=== PATIENT | female | born 1965 | race African-American/Black ===

== ENCOUNTER 2020-08-04 15:34 | Emergency (ER) | payer BC, OTHER ==
--- OUTSIDE RECORDS SUMMARY | 2020-08-04 15:36 | XMS REPORT | Summary of Care ---
:1965 Author Organization [facility] Address [address] [place] [address] Care Team Providers Name Role Phone Nikolay Peters Primary Care Provider Reason for Referral Radiology Services (Routine) Status Reason Specialty Diagnoses / Referred By Referred To Procedures Contact Contact New Request Diagnostic Diagnoses Pain Stef Falcon Radiology Procedures XR HAND <3 VW RIGHT MD Jacki [address] [facility] [place] [address] Reason for Visit Reason Comments Xray Encounter Details Date Type Department Care Team Description 07/18/2020 Telephone [facility] Orthopaedic Stef Falcon MD Xray Surgery- [place] [address] [facility] [place] [address] [address] [place] [address] Allergies No Known Allergiesdocumented as of this encounter (statuses as of 07/18/2020) Medications Medication Sig Dispensed Refills Start Date End Date Status hydroCHLOROthiazide 25 mg Take 1 tablet 30 tablet 2 01/04/2017 Active tablet by mouth daily. CRANBERRY FRUIT Take by 0 Acti ve CONCENTRATE (AZO CRANBERRY mouth. ORAL) APPLE CIDER VINEGAR ORAL Take by 0 Active mouth. plecanatide (TRULANCE) 3 Take by mouth 0 Active mg Tab daily. amLODIPine 10 mg tablet Take 10 mg by 0 Active mouth daily. ciprofloxacin HCl 500 mg Take 1 tablet 20 tablet 0 11/04/2018 Active tabletIndications: Right by mouth 2 upper quadrant abdominal (two) times pain, Constipation, daily. unspecified constipation type, Gastroenteritis dicyclomine (BENTYL) 20 mg Take 1 tablet 20 tablet 0 9 Active tabletIndications: Right by mouth 4 upper quadrant abdominal (four) times pain, Constipation, daily. unspecified constipation type, Gastroenteritis proMETHazine 25 mg Take 1 tablet 12 tablet 0 11/04/2018 Active tabletIndications: Right by mouth every upper quadrant abdominal 6 (six) hours pain, Constipation, as needed for unspecified constipation Nausea and type, Gastroenteritis Vomiting (N/V). amitriptyline 10 mg tablet Take 10 mg by 0 Active mouth at bedtime. cyclobenzaprine 5 mg Take 1 tablet 20 tablet 0 11/05/2019 Active tabletIndications: Pain of by mouth 3 right hip joint (three) times daily. gabapentin 300 mg capsule Take 300 mg by 0 Active mouth 2 (two) times daily. doxepin 25 mg capsule Take 25 mg by 0 Active mouth at bedtime. furosemide 20 mg tablet Take 20 mg by 0 Active mouth daily. Omeprazole 20 mg tablet Take by 0 Active mouth. 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, face, 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 MALIG NEOPLASM BREAST UP-OUTER 12/10/2009 Peripheral neuropathy, toxic 09/24/2009 documented as of this encounter (statuses as of 07/18/2020) Resolved Problems Problem Noted Date Resolved Date Edema 08/04/2011 12/19/2013 GENETIC DISEASE CARRIER TESTING FEMALE, DISEASE CARRIER 11/2812/19/2013 Neutropenia 09/27/2009 03/17/2010 Overview: ICD10 Diagnosis Term 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 documented as of this encounter (statuses as of 07/18/2020) Immunizations Name Administration Dates Next Due Influenza Virus Vaccine 07/19/2009 documented as of this encounter Social History Tobacco Use Types Packs/Day Years Used Date Never Smoker Smokeless Tobacco: Never Used Alcohol Use Drinks/Week oz/Week Comments No Sex Assigned at Date Recorded Not on file documented as of this encounter Last Filed Vital Signs Not on filedocumented in this encounter Miscellaneous Notes Telephone Encounter - Mil Childers - 07/18/2020 10:48 AM CSTCalled patient but no answer,I, Mil Childers (X-ray Tech), will not be in the office day of her apt. Will need to have X-rays done prior to visit at the hospital. I have placed orders in Epic. Mil Childers 07/18/2020 10:49 AM documented in this encounter Plan of Treatment Date Type Specialty Care Team Description 07/19/2020 Office Visit Surgery Oncology Lucille Park MD [address] [place] [address] 07/22/2020 Office Visit Orthopedic Surgery Kyle Falcon MD [address] [phone] Name Type Priority Associated Diagnoses Order S chedule XR HAND <3 VW RIGHT IMAGING Routine Pain Expected : 07/18/2020, Expires: 2020 Health Maintenance Due Date Last Done Comments PNEUMOCOCCAL 0-64 YEARS COMBINED SERIES 12/06/1971 (1 of 3 - PCV13) DTaP,Tdap,and Td Vaccines (1 - Tdap) 1984 Breast Cancer Screening (MAMMOGRAM) 06/09/2012 06/09/2011, 06/05/2009 COLON CANCER SCREENING ANNUAL FIT/FOBT 12/06/2015 COLON CANCER SCREENING FIT DNA EVERY 3 12/06/2015 YEARS COLON CANCER SCREENING SIGMOIDOSCOPY 12/06/2015 EVERY 5 YEARS Zoster Recombinant Vaccine (SHINGRIX) (1 12/06/2015 of 2) INFLUENZA VACCINE (#1) 2020 07/19/2009 Depression Screening 01/22/2021 01/23/2020 COLONOSCOPY 07/24/2023 07/24/2013 Colorectal Cancer Screening 07/24/2023 PAP SMEAR Discontinued 10/17/2010, 05/28/2009 documented as of this encounter Goals Goal Patient Goal Associated Recent Progress Patient-Stated? Au thor Type Problems Pt states General Yes Saritha Lambert, PT documented as of this encounter Results Not on filedocumented in this encounter Visit Diagnoses Diagnosis Pain - Primary Generalized pain documented in this encounter Insurance Payer Benefit Plan Subscriber ID Effective Phone Address Typ e / Group Dates [facility] [id number] 2018-[place] PPO/POS - [employer] EMPLOYEE PLAN nt EMPLOYEE MEDICARE MEDICARE PART [id number] 2011-Justino [phone] 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
--- OUTSIDE RECORDS SUMMARY | 2020-08-04 15:36 | XMS REPORT | Continuity of Care Document ---
:[address] [facility] t Address [address] [place] [address] Care Team Providers Name Role Phone Terrie MORENO L Attending Clinician Problems This patient has no known problems. Allergies, Adverse Reactions, Alerts This patient has no known allergies or adverse reactions. Medications This patient has no known medications. Procedures This patient has no known procedures. Encounters Start End Encounter Admission Attending Care Care Encounter Source Date/Time Date/Time Type Type Clinicians Facility Department ID 2020-07-22 2020-07-22 Office MARIA A Falcon [id number] 13:24:18 14:02:38 Visit [facility] [id number] Surgical [id number] Specialti [id number] [address] Results This patient has no known results.
--- OUTSIDE RECORDS SUMMARY | 2020-08-04 15:37 | XMS REPORT | Summary of Care ---
:1965 Author Organization [facility] Address [address] [place] [address] Care Team Providers Name Role Phone Nikolay Peters Primary Care Provider Reason for Visit Reason Comments New Patient Hand Pain Right (Routine) Status Reason Specialty Diagnoses / Referred By Referred To Procedures Contact Contact Authorized Orthopedic Surgery Diagnoses Pain in right hand [place], Procedures CONSULT/REFERRAL ORTHOPAEDIC SURGERY Magdalena [address] [facility] [address] [place] [address] Encounter Details Date Type Department Care Team Description 07/22/2020 Office Visit [facility] Orthopaedic Stef Falcon thumb of right Surgery- David Echeverria MD hand (Primary Dx) [address], [address] [place] [address] [place] [address] [address] [place], [place] [phone] Allergies No Known Allergiesdocumented as of this encounter (statuses as of 08/02/2020) Medications Medication Sig Dispensed Refills Start Date [...] as of this encounter (statuses as of 08/02/2020) Active Problems Problem Noted Date Soft tissue abscess 03/27/2018 Abdominal wall abscess 11/09/2017 Overview: Added automatically from request for maribel leigh [id number] Enlarged liver 03/10/2017 Spleen enlarged 03/10/2017 Diastasis, [...] as of this encounter (statuses as of 08/02/2020) Resolved Problems Problem Noted Date Resolved Date Edema 08/04/2011 12/19/2013 GENETIC DISEASE CARRIER TESTING FEMALE, DISEASE CARRIER 11/2812/19/2013 Neutropenia 09/27/2009 03/17/2010 Overview: ICD10 Diagnosis Term Mobile Therapist Utility documented as of this encounter (statuses as of 08/02/2020) Immunizations Name Administration Dates Next Due Influenza Virus Vaccine 07/19/2009 documented as of this encounter Social History Tobacco Use Types Packs/Day Years Used Date Never Smoker Smokeless Tobacco: Never Used Alcohol Use Drinks/Week oz/Week Comments No Sex Assigned at Date Recorded Not on file COVID-19 Exposure Response Date Recorded In the last month, have you been in contact with No / Unsure 08/01/2020 1:30 PM JOINT FILLER someone who was confirmed or suspected to have Coronavirus / COVID-19? documented as of this encounter Last Filed Vital Signs Vital Sign Reading Time Taken Comments Blood Pressure - - Pulse - - Temperature - - Respiratory Rate - - Oxygen Saturation - - Inhaled Oxygen Concentration - - Weight 96.6 kg (213 lb) 07/22/2020 1:30 PM JOINT FILLER Height 165.1 cm (5' 5") 07/22/2020 1:30 PM JOINT FILLER Body Mass Index 35.45 07/22/2020 1:30 PM JOINT FILLER documented in this encounter Progress Notes Stef Falcon MD - 07/22/2020 1:45 PM CST Cc: Chief Complaint Patient presents with New Patient Hand Pain Right Mandi Riley is a 54 year old female. Hand Pain Incident onset: 03/13/2020. The incident occurred at home. There was no injury mechanism. The pain is present in the right hand (Thumb). The quality of the pain is described as stabbing. The pain is seamus severity of 8/10. The pain has been worsening since the incident. Associated symptoms comments: Limited ROM, stiffness. The symptoms are aggravated by movement. She has tried immobilization (medrol dosepak) for the symptoms. The treatment provided no relief. Allergies Mandi has No Known Allergies. Medications Outpatient Medications Prior to Visit Medication Sig Dispense Refill doxepin 25 mg capsule Take 25 mg by mouth at bedtime. furosemide 20 mg tablet Take 20 mg by mouth daily. gabapentin 300 mg capsule Take 300 mg by mouth 2 (two) times daily. Omeprazole 20 mg tablet Take by mouth. cyclobenzaprine 5 mg tablet Take 1 tablet by mouth 3 (three) times daily. 20 tablet 0 amitriptyline 10 mg tablet Take 10 mg by mouth at bedtime. ciprofloxacin HCl 500 mg tablet Take 1 tablet by mouth 2 (two) times daily. 20 tablet 0 dicyclomine (BENTYL) 20 mg tablet Take 1 tablet by mouth 4 (four) times daily. 20 tablet 0 proMETHazine 25 mg tablet Take 1 tablet by mouth every 6 (six) hours as needed for Nausea and Vomiting (N/V). 12 tablet 0 amLODIPine 10 mg tablet Take 10 mg by mouth daily. plecanatide (TRULANCE) 3 mg Tab Take by mouth daily. APPLE CIDER VINEGAR ORAL Take by mouth. CRANBERRY FRUIT CONCENTRATE (AZO CRANBERRY ORAL) Take by mouth. hydroCHLOROthiazide 25 mg tablet Take 1 tablet by mouth daily. 30 tablet 2 No facility-administered medications prior to visit. 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, Clinical Stage IIIC, Path Stage [id number] Disruption of external operation (surgical) wound 12/18/2009 TRAM abd dehiscence Hypertension well controlled Lymphedema left arm Past Surgical History: Procedure Laterality Date ABDOMINAL HYSTERECTOMY 08/30/2004 Painful fibroids, still with ovaries intact ABDOMINAL SCAR REVISION 02/05/2010 for TRAM abd wound dehiscence SECTION 08/30/1993 COLONOSCOPY 07/24/2013 Surgeon: Devon Buenrostro DO; Location: [facility] OR LOCATION INCISION AND DRAINAGE OF ABSCESS N/A 11/11/2017 Surgeon: Sidney Leiva MD; Location: [place] [facility] INCISION AND DRAINAGE OF ABSCESS N/A 03/28/2018 Surgeon: Sidney Leiva MD; Location: [facility] OR Location MODIFIED RADICAL MASTECTOMY 11/28/2009 Left Clinical Stage IIIC OOPHORECTOMY 06/17/2010 at outside hospital PEDICLE TRAM FLAP BREAST RECONSTRUCTION 11/28/2009 Bilateral GA GRAFTING OF AUTOLOGOUS FAT BY LIPO 25 CC OR LESS Bilateral 07/2019 Fat grafting to bilateral breast reconstruction. 07/2019 and 01/2020. Dr. Arleen Monroy, [place]. SIMPLE MASTECTOMY 11/28/2009 Right prophylactic, and port removal Social History Socioeconomic History Marital status: Spouse name: Not on file Number of children: Not on file Years of education: Not on file Highest education level: Not on file Occupational History Not on file Social Needs Financial resource strain: Not on file Food insecurity Worry: Not on file Inability: Not on file Transportation needs Medical: Not on file Non-medical: Not on file Tobacco Use Smoking status: Never Smoker Smokeless tobacco: Never Used Substance and Sexual Activity Alcohol use: No Drug use: No Sexual activity: Not on file Lifestyle Physical activity Days per week: Not on file Minutes per session: Not on file Stress: Not on file Relationships Social connections Talks on phone: Not on file Gets together: Not on file Attends rastafarian service: Not on file Active member of club or organization: Not on file Attends meetings of clubs or organizations: Not on file Relationship status: Not on file Intimate partner violence Fear of current or ex partner: Not on file Emotionally abused: Not on file Physically abused: Not on file Forced sexual activity: Not on file Other Topics Concern Not on file Social History Narrative 12/01/13 Recent marriage to her long time boyfriend. She lives in [place]. Three adult children. One daughter, lives out of state, in the , is BRCA positive. Two sonshave not been BRCA tested to date. 01/07/16. She reports she is currently from her . Family History Problem Relation Age of Onset Cancer Mother Bilateral breast cancer in her 40's Cancer Maternal Grandmother ovarian cancer Genetic Sister BRCA2 positive Genetic Daughter BRCA2 positive, she lives out of state, is in the . Genetic Other maternal first cousin, BRCA2 positive Review of Systems Constitutional: Positive for activity change. HENT: Negative. Eyes: Negative. Respiratory: Negative. Cardiovascular: Negative. Gastrointestinal: Negative. Genitourinary: Negative. Musculoskeletal: Positive for gait problem and joint swelling. Skin: Negative. Psychiatric/Behavioral: Negative. Endocrine: Endocrine negative Vital Signs Ht 65" (165.1 cm) | Wt 96.6 kg (213 lb) | BMI 35.45 kg/m Physical Exam Musculoskeletal: Comments: General: Well-developed well-nourished oriented to person place and time HEENT normocephalic atraumatic atraumatic pupils equal round reactive to light extraocular muscles intact Cervical thoracic and lumbar spine without focal deficit normal kyphosis and lordosis Chest clear to auscultation and percussion Cardiovascular regular rate and rhythm without gallop rub or murmur soft without organomegaly Normal bowel sounds Neurologic: Focal myotome or dermatomal deficits Vascular: Intact symmetrical bilateral upper and lower extremities Skin without stasis varicosities or breakdown Extremities without cyanosis clubbing or edema Lymphatics no peripheral lymphedema Psych normal mood and affect. Neurovascular function is intact. To include brisk capillary refill warm pink skin active motor function and sensory function intact. Name: MANDI RILEY Acct Number: [id number] : 1965 Age: 54 Sex: F Unit Number: [id number] Ord Phys: Magdalena Navarro DIALYSIS SOCIAL WORKER [facility] Dr: Status: REG REF RAD Exam Date: 07/11/20 Reason for Exam: [id number] Report Status: Signed EXAM DESCRIPTION: RAD - Hand Right 3 View - 07/11/2020 3:04 pm CLINICAL HISTORY: Right hand pain FINDINGS: No fracture or dislocation is seen. Mild medial subluxation of the first metacarpal likely chronic. Joint spaces are well-maintained Dictated By: Stef Wharton MD 07/11/20 1520 Signed By: Stef Wharton MD 07/11/20 1521 Physician/Internist: FIGUEROA 07/11/20 1520 Assessment/Plan Trigger thumb of right hand [M65.311] Injection of 4/10ths kenalog and 6/10ths lidocaine to the right thumb today without complications. Procedure tolerated well. documented in this encounter Plan of Treatment Date Type Specialty Care Team Description 07/18/2021 Office Visit Surgery Oncology Lucille Park MD [address] [place], [place] [address] Health Maintenance Due Date Last Done Comments [...] filedocumented in this encounter Visit Diagnoses Diagnosis Trigger thumb of right hand - Primary Trigger finger (acquired) documented in this encounter Insurance Payer Benefit Plan Subscriber ID Effective Phone Address Typ e / Group Dates [facility] [id number] 2018-Prese PPO/POS - [employer] EMPLOYEE PLAN nt EMPLOYEE MEDICARE MEDICARE PART [id number] 2011-Prese [phone] [place] 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
--- OUTSIDE RECORDS SUMMARY | 2020-08-04 15:37 | XMS REPORT | Summary of Care ---
:1965 Author Organization [facility] Address [address] [place] [address] Care Team Providers Name Role Phone Nikolay Peters Primary Care Provider Encounter Details Date Type Department Care Team Description 07/15/2020 Orders Only [facility] Doctor Unassigned, No [address] [facility] [place] [address] [address] [place] [address] Allergies No Known Allergiesdocumented as of this encounter (statuses as of 07/23/2020) Medications Medication Sig Dispensed Refills Start Date [...] as of this encounter (statuses as of 07/23/2020) Active Problems Problem Noted Date Soft tissue abscess 03/27/2018 Abdominal wall abscess 11/09/2017 Overview: Added automatically from request for maribel leigh [id number] Enlarged liver 03/10/2017 Spleen enlarged 03/10/2017 Diastasis, [...] as of this encounter (statuses as of 07/23/2020) Resolved Problems Problem Noted Date Resolved Date Edema 08/04/2011 12/19/2013 GENETIC DISEASE CARRIER TESTING FEMALE, DISEASE CARRIER 11/2812/19/2013 Neutropenia 09/27/2009 03/17/2010 Overview: ICD10 Diagnosis Term Auger Mill Operator Utility documented as of this encounter (statuses as of 07/23/2020) Immunizations Name Administration Dates Next Due Influenza Virus Vaccine 07/19/2009 documented as of this encounter Social History Tobacco Use Types Packs/Day Years Used Date Never Smoker Smokeless Tobacco: Never Used Alcohol Use Drinks/Week oz/Week Comments No Sex Assigned at Date Recorded Not on file COVID-19 Exposure Response Date Recorded In the last month, have you been in contact with No / Unsure 07/22/2020 1:24 PM CAMPUS POLICE OFFICER someone who was confirmed or suspected to have Coronavirus / COVID-19? documented as of this encounter Last Filed Vital Signs Not on filedocumented in this encounter Plan of Treatment Date Type Specialty Care Team Description 08/01/2020 Office Visit Orthopedic Surgery Kyle Falcon MD [address] [place] [phone] 07/18/2021 Office Visit Surgery Oncology Lucille Park MD [address] [place] [address] Health Maintenance Due Date Last Done [...] Lambert, PT documented as of this encounter Procedures Procedure Name Priority Date/Time Associated Diagnosis Comme nts REFERRAL- Routine 07/15/2020 12:01 AM CAMPUS POLICE OFFICER REQUEST/RESPONSE documented in this encounter Results Not on filedocumented in this encounter Insurance Payer Benefit Plan Subscriber ID Effective Phone Address Typ e / Group Dates [facility] [id number] 2018-[place] - [place] nt [place]OYEE MEDICARE MEDICARE PART [id number] 2011-Prese [phone] [place] Medicare A & B nt 82 [id number] [place] [phone] documented as of this encounter Advance Directives Type Date Recorded Patient Case Reviewer Explanati on Advance Directives and Living 11/05/2017 3:11 PM Will Power of Adjunct Psychology Professor 05/21/2015 3:21 PM
--- OUTSIDE RECORDS SUMMARY | 2020-08-04 15:37 | XMS REPORT | Summary of Care ---
:1965 Author Organization [facility] Address [address] [place] [address] Care Team Providers Name Role Phone Nikolay Peters Primary Care Provider Reason for Visit Reason Comments New Patient Hand Pain Right (Routine) Status Reason Specialty Diagnoses / Referred By Referred To Procedures Contact Contact Authorized Orthopedic Surgery Diagnoses Pain in right hand [place], Procedures CONSULT/REFERRAL ORTHOPAEDIC SURGERY Magdalena [address] [facility] [address] [place] [address] Encounter Details Date Type Department Care Team Description 07/22/2020 Office Visit [facility] Orthopaedic Stef Falcon thumb of right Surgery- David Echeverria MD hand (Primary Dx) [address], [address] [place] [address] [place] [address] [place], [place] [phone] Allergies No Known Allergiesdocumented as of this [...] Added automatically from request for maribel leigh [id number] Enlarged liver 03/10/2017 Spleen enlarged 03/10/2017 Diastasis, [...] Neutropenia 09/27/2009 03/17/2010 Overview: ICD10 Diagnosis Term Clay Roaster Utility documented as of this encounter (statuses [...] with No / Unsure 08/01/2020 1:30 PM JANITOR AND CLEANER someone who was confirmed or suspected to have Coronavirus / COVID-19? documented as of this encounter Last Filed Vital Signs Vital Sign Reading Time Taken Comments Blood Pressure - - Pulse - - Temperature - - Respiratory Rate - - Oxygen Saturation - - Inhaled Oxygen Concentration - - Weight 96.6 kg (213 lb) 07/22/2020 1:30 PM JANITOR AND CLEANER Height 165.1 cm (5' 5") 07/22/2020 1:30 PM JANITOR AND CLEANER Body Mass Index 35.45 07/22/2020 1:30 PM JANITOR AND CLEANER documented in this encounter Progress Notes Stef [...] 05/2009 Left, Clinical Stage IIIC, Path Stage [id number] Disruption of external operation (surgical) wound 12/18/2009 TRAM abd dehiscence Hypertension well controlled Lymphedema left arm Past Surgical History: Procedure Laterality Date ABDOMINAL HYSTERECTOMY 08/30/2004 Painful fibroids, still with ovaries intact ABDOMINAL SCAR REVISION 02/05/2010 for TRAM abd wound dehiscence SECTION 08/30/1993 COLONOSCOPY 07/24/2013 Surgeon: Devon Buenrostro DO; Location: [facility] OR LOCATION INCISION AND DRAINAGE OF ABSCESS N/A 11/11/2017 Surgeon: Sidney Leiva MD; Location: [place] OR [facility] INCISION AND DRAINAGE OF ABSCESS N/A 03/28/2018 Surgeon: Sidney Leiva MD; Location: [facility] OR Location MODIFIED RADICAL MASTECTOMY 11/28/2009 Left Clinical Stage IIIC OOPHORECTOMY 06/17/2010 at outside hospital PEDICLE TRAM FLAP BREAST RECONSTRUCTION 11/28/2009 Bilateral MS GRAFTING OF AUTOLOGOUS FAT BY LIPO 25 CC OR LESS Bilateral 07/2019 Fat grafting to bilateral breast reconstruction. 07/2019 and 01/2020. Dr. Arleen Monroy, [place]. SIMPLE MASTECTOMY 11/28/2009 Right prophylactic, and port [...] file Gets together: Not on file Attends islam service: Not on file Active member of [...] her long time boyfriend. She lives in [place]. Three adult children. One daughter, lives out [...] function intact. Name: MANDI RILEY Acct Number: [id number] : 1965 Age: 54 Sex: F Unit Number: [id number] Ord Phys: Magdalena Navarro BARIATRIC PROGRAM COORDINATOR [facility] Dr: Status: REG REF RAD [...] Signed By: Stef Wharton MD 07/11/20 1521 Manufacturing Operations Manager: FIGUEROA 07/11/20 1520 Assessment/Plan Trigger thumb of right hand [M65.311] Injection of 4/10ths kenalog and 6/10ths lidocaine to the right thumb today without complications. Procedure tolerated well. documented in this encounter Plan of Treatment Date Type Specialty Care Team Description 07/18/2021 Office Visit Surgery Oncology Lucille Park MD [address] [place], [place] [address] Health Maintenance Due Date [...] Phone Address Typ e / Group Dates [employer] [facility] [facility] [id number] 2018-Prese PPO/POS - [employer] [employer] EMPLOYEE PLAN nt EMPLOYEE MEDICARE MEDICARE PART [id number] 2011-Prese [phone] [place] Medicare A & B nt [id number] [place] [id number] documented as of this encounter Advance Directives Type Date Recorded Patient Slitter Scorer Explanati on Advance Directives and Living 11/05/2017 3:11 PM Will Power of Crystallizer Operator 05/21/2015 3:21 PM
--- NOTE | 2020-08-04 18:50 | RAD REPORT ---
EXAM DESCRIPTION: RAD - Chest Single View - 08/04/2020 6:11 pm CLINICAL HISTORY: CHEST PAIN Chest pain. COMPARISON: No comparisons FINDINGS: Portable technique limits examination quality. The lungs are grossly clear. The heart is upper limit of normal in size. No displaced fractures. IMPRESSION: No acute intrathoracic process suspected.
[2020-08-04 20:14] LABS: Absolute Lymphocytes (CBC) 2.3 K/uL (0.7-4.9); Basophils % 0.9 % (0-1.3); Hematocrit 41.1 % (36.0-45.0); Lymphocytes % 45.7 % (15.3-44.8); MPV 8.1 fL (7.6-11.3); RBC Red Blood Cell Count 4.11 M/uL (3.86-4.86)
[2020-08-04 20:15] LABS: Protime INR 1.15
[2020-08-04] MEDS ORDERED: MAGNES/ALUMIN/SIMET 30ML UCUP ONE (20:20)
[2020-08-04] MEDS ORDERED: LIDOCAINE VISCOUS 2% SOLN 15 ML UDC ONE (20:20)
[2020-08-04 20:32] LABS: ALT/SGPT 30 U/L (12-78); AST/SGOT 20 U/L (15-37); Albumin 4.4 g/dL (3.4-5.0); Alkaline Phosphatase 95 U/L (45-117); BUN Blood Urea Nitrogen 13 mg/dL (7-18); Bicarbonate 31 mmol/L (21-32); Bilirubin Direct 0.2 mg/dL (0-0.2); Bilirubin Total 0.6 mg/dL (0.2-1.0); Glucose Level 84 mg/dL (74-106); Magnesium 2.5 mg/dL (1.8-2.4); NT PRO-BNP 147 pg/mL (<125); Potassium 3.5 mmol/L (3.5-5.1); Protein, Total 8.9 g/dL (6.4-8.2); Sodium Level 143 mmol/L (136-145); Troponin (Emerg Dept Use Only) < 0.02 ng/mL (0.0-0.045)
--- NOTE | 2020-08-04 20:44 | EDPHYS ---
Physician Documentation [facility] Name: Mandi Hernandez Age: 54 yrs Sex: Female : 1965 Arrival Date: 08/04/2020 Time: 15:36 Bed 6 Private MD: ED Physician Elie Gomes HPI: 08/04 17:59 This 54 yrs old Black Female presents to ER via Ambulatory with complaints of Chest pm1 Pain, Headache. 17:59 The patient or guardian reports chest pain that is located primarily in the mid-sternal pm1 area. Onset: 3 day(s) ago. The pain does not radiate. Associated signs and symptoms: Pertinent positives: cough, headache, Pertinent negatives: abdominal pain, diaphoresis, dizziness, nausea, palpitations, shortness of breath, vomiting. The chest pain is described as sharp. Modifying factors: the symptoms are aggravated by cough. Severity of pain: in the emergency department the pain is unchanged. Patient with chest pain and headache for the past 3 days. Exposure to someone with covid and she started having cough and chills yesterday. Has a pending covid test. 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 - Social history:: Smoking status: Patient denies any tobacco usage or history of. ROS: 17:59 Eyes: Negative for injury, pain, redness, and discharge, ENT: Negative for injury, pm1 pain, and discharge, Neck: Negative for injury, pain, and swelling. 17:59 Abdomen/GI: Negative for abdominal pain, nausea, vomiting, diarrhea, and constipation, Back: Negative for injury and pain, : Negative for injury, bleeding, discharge, and swelling, MS/Extremity: Negative for injury and deformity, Skin: Negative for injury, rash, and discoloration. 17:59 Constitutional: Positive for chills, Negative for fever, poor PO intake. 17:59 Cardiovascular: Positive for chest pain, Negative for edema, palpitations. 17:59 Respiratory: Positive for cough. 17:59 Neuro: Positive for headache, Negative for numbness, tingling, weakness. Exam: 17:59 Constitutional: This is a well developed, well nourished patient who is awake, alert, pm1 and in no acute distress. Head/Face: Normocephalic, atraumatic. ENT: Nares patent. No nasal discharge, no septal abnormalities noted. Tympanic membranes are normal and external auditory canals are clear. Oropharynx with no redness, swelling, or masses, exudates, or evidence of obstruction, uvula midline. Mucous membranes moist. Neck: Trachea midline, no thyromegaly or masses palpated, and no cervical lymphadenopathy. Supple, full range of motion without nuchal rigidity, or vertebral point tenderness. No Meningismus. 17:59 Respiratory: Lungs have equal breath sounds bilaterally, clear to auscultation and percussion. No rales, rhonchi or wheezes noted. No increased work of breathing, no retractions or nasal flaring. 17:59 Back: No spinal tenderness. No costovertebral tenderness. Full range of motion. Skin: Warm, dry with normal turgor. Normal color with no rashes, no lesions, and no evidence of cellulitis. MS/ Extremity: Pulses equal, no cyanosis. Neurovascular intact. Full, normal range of motion. 17:59 Chest/axilla: Inspection: normal, Palpation: tenderness, of the mid-sternal area, that totally reproduces the patient's complaints, deep breathing reproduces pain. 17:59 Cardiovascular: Exam negative for acute changes, Rate: normal, Rhythm: regular, Pulses: no pulse deficits are appreciated, Heart sounds: normal, normal S1and S2, Edema: is not appreciated. 17:59 Abdomen/GI: Inspection: abdomen appears normal, Palpation: abdomen is soft and non-tender, in all quadrants. 17:59 Neuro: Orientation: is normal, Mentation: is normal, Motor: is normal, moves all fours, Sensation: is normal, no obvious gross deficits. Vital Signs: 16:11 BP 144 / 90; Pulse 59; Resp 18 S; Temp 98(TE); Pulse Ox 99% on R/A; Weight 97.52 kg ca1 (R); Height 5 ft. 5 in. (165.10 cm) (R); Pain 7/10; 19:15 BP 138 / 86; Pulse 54; Resp 18; Pulse Ox 99% on R/A; wh 20:30 BP 142 / 86; Pulse 55; Resp 18; Pulse Ox 98% ; wh 16:11 Body Mass Index 35.78 (97.52 kg, 165.10 cm) ca1 MDM: 17:48 Patient medically screened. pm1 20:41 Data reviewed: vital signs. pm1 20:41 Differential diagnosis: acute myocardial infarction, chest wall pain, gastritis, pm1 pulmonary embolus, URI. 20:44 ED course: Symptoms improved with GI cocktail. pm1 20:44 Counseling: I had a detailed discussion with the patient and/or guardian regarding: the pm1 historical points, exam findings, and any diagnostic results supporting the discharge/admit diagnosis, lab results, radiology results, the need for outpatient follow up, to return to the emergency department if symptoms worsen or persist or if there are any questions or concerns that arise at home. 08/04 17:53 Order name: Basic Metabolic Panel; Complete Time: 20:34 pm1 08/04 17:53 Order name: CBC with Diff; Complete Time: 20:39 pm1 08/04 17:53 Order name: LFT's; Complete Time: 20:34 pm1 08/04 17:53 Order name: Magnesium; Complete Time: 20:34 pm1 08/04 17:53 Order name: NT PRO-BNP; Complete Time: 20:34 pm1 08/04 17:53 Order name: PT-INR; Complete Time: 20:43 pm1 08/04 16:11 Order name: EKG; Complete Time: 16:22 ca1 08/04 17:53 Order name: Troponin (emerg Dept Use Only); Complete Time: 20:34 pm1 08/04 17:53 Order name: XRAY Chest (1 view); Complete Time: 18:56 pm1 08/04 17:53 Order name: COVID-19 pm1 08/04 17:53 Order name: Flu; Complete Time: 19:06 pm1 08/04 17:53 Order name: Strep; Complete Time: 18:48 pm1 08/04 19:00 Order name: Throat Culture EDVA 08/04 16:11 Order name: EKG - Nurse/Tech; Complete Time: 16:11 ca1 08/04 17:53 Order name: Cardiac monitoring; Complete Time: 19:12 pm1 08/04 17:53 Order name: Labs collected and sent; Complete Time: 19:12 pm1 08/04 17:53 Order name: O2 Per Protocol; Complete Time: 18:31 pm1 08/04 17:53 Order name: O2 Sat Monitoring; Complete Time: 18:31 pm1 Administered Medications: 20:10 Drug: GI Cocktail without - (Maalox Suspension 30 ml, Lidocaine Liquid 2 % 15 tl1 ml) Route: PO; 20:45 Follow up: Response: No adverse reaction; Pain is decreased Disposition: 08/05 09:33 Co-signature as Attending Physician, Elie Gomes MD. rn Disposition: 08/04/20 20:43 Discharged to Home. Impression: Chest pain, unspecified, Headache, Acute upper respiratory infection, unspecified. - Condition is Stable. - Discharge Instructions: Nonspecific Chest Pain, General Headache Without Cause, Upper Respiratory Infection, Adult, COVID-19. - Prescriptions for Pepcid 20 mg Oral Tablet - take 1 tablet by ORAL route every 12 hours for 10 days; 20 tablet. Guaifenesin AC 10- 100 mg/5 mL Oral Liquid - take 10 milliliter by ORAL route every 4 hours As needed; 240 milliliter. - Medication Reconciliation Form, Thank You Letter, Antibiotic Education, Prescription Opioid Use form. - Follow up: Emergency Department; When: As needed; Reason: Worsening of condition. Follow up: Private Physician; When: 2 - 3 days; Reason: Recheck today's complaints, Continuance of care, Re-evaluation by your physician. - Problem is new. - Symptoms have improved. Signatures: Dispatcher [employer] EDMS Elie Gomes MD MD rn Lasagna, Tonya RN RN tl1 Cirilo Wagoner NP PREHEMMER pm1 Ellis Milner Nimisha, Erica RN RN ca1 Corrections: (The following items were deleted from the chart) 08/04 20:45 17:53 IV Saline Lock ordered. pm1 21:12 20:43 08/04/2020 20:43 Discharged to Home. Impression: Chest pain, unspecified; Headache; Acute upper respiratory infection, unspecified. Condition is Stable. Forms are Medication Reconciliation Form, Thank You Letter, Antibiotic Education, Prescription Opioid Use. Follow up: Emergency Department; When: As needed; Reason: Worsening of condition. Follow up: Private Physician; When: 2 - 3 days; Reason: Recheck today's complaints, Continuance of care, Re-evaluation by your physician. Problem is new. Symptoms have improved. pm1
--- NOTE | 2020-08-04 20:44 | ER ---
Nurse's Notes [facility] Name: Mandi Hernandez Age: 54 yrs Sex: Female : 1965 Arrival Date: 08/04/2020 Time: 15:36 Bed 6 Private MD: Diagnosis: Chest pain, unspecified;Headache;Acute upper respiratory infection, unspecified Presentation: 08/04 16:11 Chief complaint: Patient states: Chest pain, headache x 3 days. I got exposed to Covid+ ca1 pt. Denies fever. Reports a little cough and chills. Coronavirus screen: Client denies travel out of the [place] in the last 14 days. chills, cough unrelated to allergies, headache, Client presents with at least one sign or symptom that may indicate coronavirus-19. Standard/surgical mask placed on the client. Provider contacted for isolation considerations. Ebola Screen: Patient negative for fever greater than or equal to 101.5 degrees Fahrenheit, and additional compatible Ebola Virus Disease symptoms Patient denies exposure to infectious person. Patient denies travel to an Ebola-affected area in the 21 days before illness onset. No symptoms or risks identified at this time. Initial Sepsis Screen: Does the patient meet any 2 criteria? No. Patient's initial sepsis screen is negative. Does the patient have a suspected source of infection? No. Patient's initial sepsis screen is negative. Risk Assessment: Do you want to hurt yourself or someone else? Patient reports no desire to harm self or others. Onset of symptoms was August 04, 2020. 16:11 Method Of Arrival: Ambulatory ca1 16:11 Acuity: GUADALUPE 3 ca1 Triage Assessment: 16:14 Cardiovascular: Rhythm is sinus rhythm. 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 - Social history:: Smoking status: Patient denies any tobacco usage or history of. Screenin:56 Abuse screen: Denies threats or abuse. Denies injuries from another. Nutritional ph screening: No deficits noted. Tuberculosis screening: No symptoms or risk factors identified. Fall Risk None identified. Assessment: 17:45 General: Appears in no apparent distress. comfortable, well groomed, Behavior is calm, ph cooperative, appropriate for age, Reports chills for 1-2 days, Denies fever. Pain: Complains of pain in chest and head Pain does not radiate. Quality of pain is described as burning, Pain began 2-3 days ago. Neuro: Level of Consciousness is awake, alert, obeys commands, Oriented to person, place, time, situation, Reports headache Denies dizziness. Cardiovascular: Reports chest pain, Denies lightheadedness, nausea, palpitations, shortness of breath, Capillary refill < 3 seconds in bilateral fingers Patient's skin is warm and dry. Chest pain quality is burning, is located in substernal area. Respiratory: Reports cough that is Airway is patent Respiratory effort is even, unlabored, Respiratory pattern is regular, symmetrical, Denies shortness of breath. GI: No signs and/or symptoms were reported involving the gastrointestinal system. Patient currently denies abdominal pain, diarrhea, nausea, vomiting. Derm: Skin is intact, is healthy with good turgor, Skin is normal. Musculoskeletal: Circulation, motion, and sensation intact. Range of motion: intact in all extremities. 19:10 Reassessment: Patient appears in no apparent distress at this time. Patient and/or wh family updated on plan of care and expected duration. Pain level reassessed. Patient is alert, oriented x 3, equal unlabored respirations, skin warm/dry/pink. 19:15 Reassessment: Per report Pt was initiated for an Iv access via ultrasound but was wh unsuccesful, Lab notified needed redraw, Inside lab was requested for a blood draw. 20:00 Reassessment: Patient appears in no apparent distress at this time. Patient and/or wh family updated on plan of care and expected duration. Pain level reassessed. Patient is alert, oriented x 3, equal unlabored respirations, skin warm/dry/pink. 21:00 Reassessment: Patient appears in no apparent distress at this time. Patient and/or wh family updated on plan of care and expected duration. Pain level reassessed. Patient is alert, oriented x 3, equal unlabored respirations, skin warm/dry/pink. Patient states feeling better. Patient states symptoms have improved. Vital Signs: 16:11 BP 144 / 90; Pulse 59; Resp 18 S; Temp 98(TE); Pulse Ox 99% on R/A; Weight 97.52 kg ca1 (R); Height 5 ft. 5 in. (165.10 cm) (R); Pain 7/10; 19:15 BP 138 / 86; Pulse 54; Resp 18; Pulse Ox 99% on R/A; wh 20:30 BP 142 / 86; Pulse 55; Resp 18; Pulse Ox 98% ; wh 16:11 Body Mass Index 35.78 (97.52 kg, 165.10 cm) ca1 ED Course: 15:36 Patient arrived in ED. as 16:13 Triage completed. ca1 16:14 Arm band placed on right wrist. ca1 17:32 Cirilo Wagoner NP is PHCP. pm1 17:32 Elie Gomes MD is Attending Physician. pm1 17:34 Alley Gerard RN is Primary Nurse. ph 17:56 Patient has correct armband on for positive identification. Placed in gown. Bed in low ph position. Call light in reach. Side rails up X 1. optometrist owner on. Pulse ox on. NIBP on. Door closed. Noise minimized. Warm blanket given. 17:57 Patient maintains SpO2 saturation greater than 95% on room air. ph 18:12 XRAY Chest (1 view) In Process Unspecified. EDMS 18:20 Missed attempt(s): 22 gauge in right antecubital area. Bleeding controlled, band aid ph applied, catheter tip intact. 18:32 Flu Sent. ph 18:32 Strep Sent. ph 20:29 Primary Nurse role handed off by Alley Gerard, RN mw2 20:45 Ellis Milner is Primary Nurse. wh 21:11 No provider procedures requiring assistance completed. Patient did not have IV access wh during this emergency room visit. Administered Medications: 20:10 Drug: GI Cocktail without - (Maalox Suspension 30 ml, Lidocaine Liquid 2 % 15 tl1 ml) Route: PO; 20:45 Follow up: Response: No adverse reaction; Pain is decreased wh Outcome: 20:43 Discharge ordered by . pm1 21:11 Discharged to home ambulatory, with family. wh 21:11 Condition: stable 21:11 Discharge instructions given to patient, family, Instructed on discharge instructions, follow up and referral plans. medication usage, POC Demonstrated understanding of instructions, follow-up care, medications, POC Prescriptions given X 2. 21:12 Patient left the ED. wh Signatures: Dispatcher [employer] Alisson Pagan Tonya, RN RN tl1 Alley Gerard RN RN ph Cirilo Wagoner, COOK APPRENTICE PASTRY COOK APPRENTICE PASTRY pm1 Ellis Milner Dona Greene mw2 Erica Bansal RN RN ca1
[2020-08-08 14:35] VITALS: TEMP 98
[2020-08-08 14:38] VITALS: BP 142/86; O2SAT 98
== END 2020-08-04 21:12 | disposition home or self-care (01) ==
LOC: ER 15:34
DX: J06.9 Acute upper respiratory infection, unspecified (principal); R51.9 Headache, unspecified; I10 Essential (primary) hypertension; Z85.3 Personal history of malignant neoplasm of breast; Z90.13 Acquired absence of bilateral breasts and nipples
CPT/HCPCS: 36415; 71045; 80048; 80076; 83735; 83880; 84484; 85025; 85610; 87070; 87081; 87804; 93005; 99285